=== PATIENT | male | born 1930 | race African-American/Black ===

== ENCOUNTER 2019-07-13 12:03 | Inpatient (IN) | payer MEDICARE ==
[~2019-07-13] VITALS: Ht 182.9 cm; Wt 88.0 kg
[2019-07-13] MEDS ORDERED: DEXTROSE 50% WATER 50ML SYRINGE IV ONE ×2 (13:45)
[2019-07-13 16:01] LABS: HEMATOCRIT. 36.2 % (42.0-52.0); HEMOGLOBIN. 11.7 g/dL (14.0-18.0); MEAN CORPUSCULAR HEMOGLOBIN 27.6 pg (28.0-32.0); MEAN CORPUSCULAR VOLUME 85.6 fL (80.0-94.0); PLATELET 164 x1000/uL (130-400); RED BLOOD CELL COUNT 4.23 mill/uL (4.7-6.1); RED CELL DISTRIBUTION WIDTH 20.7 % (11.6-14.6)
[2019-07-13 16:13] LABS: CLARITY URINE CLOUDY (CLEAR); COLOR URINE YELLOW (YELLOW); KETONES URINE NEGATIVE (NEGATIVE); LEUKOCYTE ESTERASE URINE NEGATIVE (NEGATIVE); NITRITE URINE NEGATIVE (NEGATIVE); OCCULT BLOOD URINE 2+ (NEGATIVE); PROTEIN URINE 3+ (NEGATIVE); SPECIFIC GRAVITY URINE 1.019 (1.005-1.030)
[2019-07-13 16:33] LABS: PLATELET ESTIMATE NORMAL
[2019-07-13] MEDS ORDERED: NA PHOS,M-B/NA PHOS,DI-BA ENEMA 118ML PR PRN (18:30)
[2019-07-13] MEDS ORDERED: ONDANSETRON HCL 4MG/2ML INJ IV PRN (18:30)
[2019-07-13] MEDS ORDERED: MORPHINE SULFATE 2 MG/ML CPJ (NOT FOR IM USE) IV PRN (18:30)
[2019-07-13] MEDS ORDERED: MAGNESIUM/ALUMINUM HYDROXIDE/SIMETHICONE 30ML UDC PO PRN (18:30)
[2019-07-13] MEDS ORDERED: ACETAMINOPHEN 325MG TABLET PO PRN (18:30)
[2019-07-13] MEDS ORDERED: DOCUSATE SODIUM 100MG CAPSULE PO PRN (18:30)
[2019-07-13] MEDS ORDERED: CLONIDINE 0.1MG TABLET PO PRN (18:30)
[2019-07-13 20:45] VITALS: BP 143/89
[2019-07-13] MEDS: PANTOPRAZOLE SODIUM 40 MG/VIAL IV SCH (22:13)
[2019-07-13] MEDS: FUROSEMIDE 40MG/4ML VIAL IV SCH (22:14)
[2019-07-13] MEDS: DEXTROSE 5% WATER 1,000 ML IV SCH (22:14)
[2019-07-13] MEDS ORDERED: ENOXAPARIN 30MG/0.3ML SYR SUBCUT SCH (23:00)
[2019-07-14] VITALS: BP 117/71
[2019-07-14] MEDS: BLOOD SUGAR DIAGNOSTIC STRIP TEST SCH ×6 (00:20→20:19)
[2019-07-14] MEDS ORDERED: AMIO100T4 PO (01:14)
[2019-07-14] MEDS ORDERED: ATOR-2 PO (01:14)
[2019-07-14] MEDS ORDERED: INSU100I28 SQ (01:14)
[2019-07-14] MEDS ORDERED: ASPI-1393 PO (01:14)
[2019-07-14] MEDS ORDERED: MIDO10TA PO (01:14)
[2019-07-14] MEDS ORDERED: INSU100C6 SQ (01:14)
[2019-07-14] MEDS ORDERED: DULA1.5P SQ (01:14)
[2019-07-14] MEDS ORDERED: FURO20TA4 PO (01:14)
[2019-07-14 04:00] VITALS: BP 126/70
[2019-07-14 07:18] LABS: HEMATOCRIT. 31.8 % (42.0-52.0); HEMOGLOBIN. 10.4 g/dL (14.0-18.0); MEAN CORPUSCULAR HEMOGLOBIN 27.4 pg (28.0-32.0); MEAN PLATELET VOLUME 10.2 fl (7.4-10.4); PLATELET 157 x1000/uL (130-400); RED BLOOD CELL COUNT 3.79 mill/uL (4.7-6.1); RED CELL DISTRIBUTION WIDTH 20.7 % (11.6-14.6)
[2019-07-14 08:00] VITALS: BP 127/77
[2019-07-14 08:09] LABS: CHLORIDE 102 mEq/L (98-107)
[2019-07-14 08:17] LABS: LDL CHOLESTEROL 65 mg/dL (5-100)
[2019-07-14 08:18] LABS: HDL CHOLESTEROL 62 mg/dL (40-59)
[2019-07-14] MEDS: FUROSEMIDE 40MG/4ML VIAL IV SCH (09:04)
[2019-07-14] MEDS: PANTOPRAZOLE SODIUM 40 MG/VIAL IV SCH (09:04)
[2019-07-14 12:00] VITALS: BP 129/78
[2019-07-14] MEDS: DEXTROSE 5% WATER 1,000 ML IV SCH (12:23)
[2019-07-14] MEDS: DEXT 5%/0.45% NACL 1000ML 1,000 ML IV SCH (12:35)
[2019-07-14] MEDS: ENOXAPARIN 80MG/0.8ML SYR SUBCUT SCH (13:51)
[2019-07-14 16:00] VITALS: BP 136/88
[2019-07-14] MEDS: SUCRALFATE 1 G/10 ML UDC PO SCH ×2 (17:44→21:46)
[2019-07-14 19:55] LABS: PLATELET ESTIMATE NORMAL
[2019-07-14 20:00] VITALS: BP 135/77
[2019-07-14] MEDS ORDERED: INSULIN GLARGINE UD 100 UNITS/ML SYR SUBCUT NR (22:00)
[2019-07-15 04:00] VITALS: BP 135/87
[2019-07-15] MEDS: SUCRALFATE 1 G/10 ML UDC PO SCH ×5 (07:40→23:42)
[2019-07-15] MEDS: BLOOD SUGAR DIAGNOSTIC STRIP TEST SCH ×4 (07:42→21:00)
[2019-07-15] MEDS ORDERED: DEXTROSE 50% WATER 50ML SYRINGE IV PRN (07:45)
[2019-07-15] MEDS ORDERED: BLOOD SUGAR DIAGNOSTIC STRIP TEST SCH (07:45)
[2019-07-15 08:00] VITALS: BP 143/92
[2019-07-15] MEDS: INSULIN LISPRO 100 UNITS/ML SUBCUT SCH ×4 (08:00→21:00)
[2019-07-15 08:39] LABS: HEMATOCRIT. 33.1 % (42.0-52.0); HEMOGLOBIN. 10.9 g/dL (14.0-18.0); MEAN CORPUSCULAR HEMOGLOBIN 27.9 pg (28.0-32.0); MEAN CORPUSCULAR VOLUME 84.7 fL (80.0-94.0); MEAN PLATELET VOLUME 10.4 fl (7.4-10.4); PLATELET 168 x1000/uL (130-400); RED BLOOD CELL COUNT 3.91 mill/uL (4.7-6.1); RED CELL DISTRIBUTION WIDTH 20.1 % (11.6-14.6)
[2019-07-15 08:41] LABS: INR 1.3; PROTHROMBIN TIME 12.8 sec (9.6-11.0)
[2019-07-15] MEDS ORDERED: INSULIN GLARGINE UD 100 UNITS/ML SYR SUBCUT SCH ×2 (09:00→10:00)
[2019-07-15] MEDS ORDERED: FAMOTIDINE 20MG/2ML VIAL IV SCH (09:00)
[2019-07-15] MEDS: DEXT 5%/0.45% NACL 1000ML 1,000 ML IV SCH (10:09)
[2019-07-15 10:31] LABS: CHLORIDE 96 mEq/L (98-107)
[2019-07-15] MEDS: PANTOPRAZOLE 40MG DR TABLET PO SCH (11:09)
[2019-07-15] MEDS: METOCLOPRAMIDE HCL 5MG TABLET PO SCH ×3 (11:11→23:42)
[2019-07-15] MEDS ORDERED: ALBUTEROL 6.7GM HFA INHALER ORI PRN (12:00)
[2019-07-15 12:30] VITALS: BP_SYST 125; BP_SYST 127; BP_DIAS 76; BP_DIAS 77
[2019-07-15] MEDS: MIDODRINE HCL 2.5MG TABLET PO SCH ×2 (12:43→17:10)
[2019-07-15] MEDS: ENOXAPARIN 80MG/0.8ML SYR SUBCUT SCH (12:44)
[2019-07-15] MEDS ORDERED: ALBUTEROL (0.083%) 2.5MG/3ML NEB HHN PRN (12:45)
[2019-07-15 13:18] LABS: HEPATITIS A AB IGM NEGATIVE (NEGATIVE)
[2019-07-15] MEDS: IPRATROPIUM/ALBUTEROL 0.5-3(2.5)MG/3ML NEB HHN PRN (13:19)
[2019-07-15 14:40] LABS: HEPATITIS B SURFACE ANTIGEN NEGATIVE
[2019-07-15 16:00] VITALS: BP 125/87
[2019-07-15 17:38] LABS: PLATELET ESTIMATE NORMAL
[2019-07-15 20:00] VITALS: BP_SYST 127; BP_SYST 130; BP_SYST 142; BP_DIAS 72; BP_DIAS 82
[2019-07-16] VITALS (8 sets, daily range): BP systolic 124–165; BP diastolic 72–94
[2019-07-16] MEDS: METOCLOPRAMIDE HCL 5MG TABLET PO SCH ×3 (06:30→18:04)
[2019-07-16] MEDS: BLOOD SUGAR DIAGNOSTIC STRIP TEST SCH ×3 (06:30→18:03)
[2019-07-16] MEDS: SUCRALFATE 1 G/10 ML UDC PO SCH ×3 (06:30→18:03)
[2019-07-16] MEDS: INSULIN LISPRO 100 UNITS/ML SUBCUT SCH ×3 (08:08→18:03)
[2019-07-16] MEDS: PANTOPRAZOLE 40MG DR TABLET PO SCH (08:22)
[2019-07-16] MEDS: MIDODRINE HCL 2.5MG TABLET PO SCH ×3 (08:33→17:00)
[2019-07-16] MEDS ORDERED: APIX5TAB MT (11:09)
[2019-07-16] MEDS ORDERED: SUCR1TAB30 MT (11:09)
[2019-07-16] MEDS ORDERED: PANT40TA4 MT (11:09)
[2019-07-16] MEDS ORDERED: METO5TAB86 MT (11:09)
[2019-07-16] MEDS: ENOXAPARIN 80MG/0.8ML SYR SUBCUT SCH (12:34)
[2019-07-16] MEDS: IPRATROPIUM/ALBUTEROL 0.5-3(2.5)MG/3ML NEB HHN PRN (14:30)
[2019-07-16] MEDS ORDERED: MIDODRINE HCL 5MG TABLET PO SCH (15:50)
[2019-07-17] MEDS ORDERED: INSULIN GLARGINE UD 100 UNITS/ML SYR SUBCUT SCH (10:00)
== END 2019-07-16 19:35 | disposition home health service (06) | DRG 637 ==
LOC: ER 12:03 → 7WST 16:23 → ENRESERV 19:31 → 7WST 21:45
PROVIDERS: ADMIT Hospitalist; ATTEND Hospitalist
DX: E11.649 Type 2 diabetes mellitus with hypoglycemia without coma (principal); G93.41 Metabolic encephalopathy; I50.33 Acute on chronic diastolic (congestive) heart failure; I13.0 Hypertensive heart and chronic kidney disease with heart failure and stage 1 through stage 4 chronic kidney disease, or unspecified chronic kidney disease; K29.70 Gastritis, unspecified, without bleeding; I82.432 Acute embolism and thrombosis of left popliteal vein; N17.9 Acute kidney failure, unspecified; E11.22 Type 2 diabetes mellitus with diabetic chronic kidney disease; D63.8 Anemia in other chronic diseases classified elsewhere; I25.10 Atherosclerotic heart disease of native coronary artery without angina pectoris; J44.9 Chronic obstructive pulmonary disease, unspecified; N18.9 Chronic kidney disease, unspecified; E11.43 Type 2 diabetes mellitus with diabetic autonomic (poly)neuropathy; K31.84 Gastroparesis; K80.20 Calculus of gallbladder without cholecystitis without obstruction; I82.412 Acute embolism and thrombosis of left femoral vein; R74.0 Nonspecific elevation of levels of transaminase and lactic acid dehydrogenase [LDH]
CPT/HCPCS: 36415; 71045; 74176; 76700; 80048; 80061; 81003; 82962; 83880; 84484; 86705; 86709; 86803; 87340; 93005; 93970; 96374; 97162; 99285; C9113; J1650; J1815; J1940; J3490; J7070; J7620; J8597